=== PATIENT | female | born 1990 | race Caucasian/White ===

== ENCOUNTER 2018-12-15 00:10 | Emergency (ER) | payer OTHER ==
[~2018-12-15] VITALS: Ht 149.9 cm; Wt 66.3 kg
[~2018-12-15 00:10] MED LIST: FERR-31 PO; PRENAT PO
[2018-12-15 00:13] VITALS: Ht 149.9 cm; Wt 66.3 kg
[2018-12-15] MEDS ORDERED: ACETAMINOPHEN 500 MG TAB PO STA (01:39)
[2018-12-15] MEDS ORDERED: CYCLOBENZAPRINE 10 MG TAB PO ONE (02:00)
[2018-12-15] MEDS ORDERED: SOD CHLORIDE 0.9% 100 ML ONE (02:58)
[2018-12-15] MEDS ORDERED: IOHEXOL 300MG/ML 150 ML BTL ONE (02:58)
[2018-12-15] MEDS ORDERED: NAPR-985 PO (04:08)
[2018-12-15] MEDS ORDERED: CYCL10TA7 PO (04:08)
[2018-12-15 04:25] VITALS: BP 93/60; PULSE 56; RESP 16
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
== END 2018-12-15 04:26 | disposition home or self-care (01) ==
LOC: FTE 00:10
DX: R10.31 Right lower quadrant pain (principal); R10.32 Left lower quadrant pain
CPT/HCPCS: 74177; 80048; 81025; 84703; 85025; 85049; 85610; 85670; 85730; Q9967; Z7502; Z7610